=== PATIENT | female | born 1975 | race Caucasian/White ===

== ENCOUNTER 2021-07-19 11:00 | Outpatient (CLI) | payer OTHER | END 2021-07-19 11:01 | disposition home or self-care (01) | LOC: CSHMAMMO 11:00 | PROVIDERS: ATTEND Obstetrics & Gynecology | DX: Z12.31 Encounter for screening mammogram for malignant neoplasm of breast (principal) | CPT/HCPCS: 77063; 77067 ==

== ENCOUNTER 2022-07-29 10:07 | Outpatient (CLI) | payer OTHER | END 2022-07-29 10:08 | disposition home or self-care (01) | LOC: CSHMAMMO 10:07 | PROVIDERS: ATTEND Obstetrics & Gynecology | DX: Z12.31 Encounter for screening mammogram for malignant neoplasm of breast (principal) | CPT/HCPCS: 77063; 77067 ==

== ENCOUNTER 2024-01-21 09:22 | Outpatient (CLI) | payer BC | END 2024-01-21 09:23 | disposition home or self-care (01) | LOC: CSHMAMMO 09:22 | PROVIDERS: ATTEND Obstetrics & Gynecology | DX: Z12.31 Encounter for screening mammogram for malignant neoplasm of breast (principal) | CPT/HCPCS: 77063; 77067 ==

== ENCOUNTER 2024-05-04 05:49 | Day surgery (SDC) | payer BC ==
[2024-05-03 09:37] VITALS: BMI 27.3
[2024-05-04] MEDS ORDERED: Bupivacaine HCl 0.5%/Epinephrine 1:200,000/PF 30 ml Vial ONE (06:12)
[2024-05-04] MEDS ORDERED: CEFAZOLIN 2 GM VIAL ONE (06:36)
[2024-05-04] MEDS ORDERED: Midazolam HCl 2 mg/2 ml Vial ONE (06:41)
[2024-05-04] MEDS ORDERED: Ketorolac Tromethamine 30 MG (1 mL) VIAL ONE (06:47)
[2024-05-04] MEDS ORDERED: PROPOFOL 20 ML ONE (06:47)
[2024-05-04] MEDS ORDERED: Lidocaine 2% PF 5 ML VIAL ONE (06:47)
[2024-05-04] MEDS ORDERED: Dexamethasone 4 mg/ml Vial ONE (06:47)
[2024-05-04] MEDS ORDERED: Ondansetron PF 4 MG/2 ML Vial ONE (06:47)
[2024-05-04 06:50] LABS: #Basophils 0.07 10x3/uL (0.0-0.2); #Eosinphils 0.26 10x3/uL (0.0-0.5); #Monocytes 0.59 10x3/uL (0.0-1.1); #Neutrophils 4.24 10x3/uL (1.5-8.4); %Eosinophils 3.8 % (0.0-6.0); %Lymphocytes 24.4 % (18.0-47.0); %Monocytes 8.6 % (0.0-10.0); %Neutrophils 61.9 % (40.0-75.0); Hemoglobin 13.4 g/dL (12.0-15.5); Mean Corpuscular HGB CONC 32.7 g/dL (32.0-36.0); Mean Corpuscular Volume 94.9 fL (81.6-98.3); Mean Platelet Volume 8.5 fL (7.4-10.4); Platelet Count 471 10x3/uL (150-450); RBC Distribution Width 12.9 % (11.5-14.5); Red Blood Cell (RBC) Count 4.32 10x6/uL (3.90-5.03); White Blood Cell (WBC) Count 6.9 10x3/uL (3.5-10.5)
[2024-05-04 06:51] LABS: BHCG - Serum Negative (NEGATIVE); Pregs Control Background? CLEAR/WHITE (CLR/WHITE); Pregs Control Bar Appear? YES (CONTROL BAR)
[2024-05-04 06:57] LABS: Anion Gap 15 mmol/L (10-20); BUN (Urea Nitrogen) 15 mg/dL (7.0-18.7); Calc. Creatinine Clearance 96 mL/min (70-130); Calcium 9.5 mg/dL (7.8-10.44); Carbon Dioxide 24 mmol/L (22-29); Chloride 107 mmol/L (98-107); Estimated GFR 86; Glucose 98 mg/dL (70-105); Sodium 142 mmol/L (136-145)
[2024-05-04] MEDS ORDERED: fentaNYL 50 mcg/mL 1 mL Vial ONE (07:18)
[2024-05-04] MEDS ORDERED: Ferric Subsulfate 8 ML TOPICAL SOLN ONE (07:43)
== END 2024-05-04 09:15 | disposition home or self-care (01) ==
LOC: CSHSDC 05:49
PROVIDERS: ATTEND Obstetrics & Gynecology
PROC: 0UBC7ZZ Excision of Cervix, Via Natural or Artificial Opening (ICD-10-PCS; principal; 2024-05-04)
DX: D06.9 Carcinoma in situ of cervix, unspecified (principal); N85.00 Endometrial hyperplasia, unspecified; R87.810 Cervical high risk human papillomavirus (HPV) DNA test positive; Z79.899 Other long term (current) drug therapy; Z98.890 Other specified postprocedural states
CPT/HCPCS: 36415; 80048; 84703; 85025; 88305; 88307; J1100; J1885; J2001; J2250; J2405; J2704; J3010